=== PATIENT | male | born 1960 | race Caucasian/White ===

== ENCOUNTER 2017-04-22 12:53 | Emergency (ER) | payer MEDICAID, OTHER ==
[~2017-04-22] VITALS: Ht 172.7 cm; Wt 102.3 kg
[~2017-04-22 12:53] MED LIST: IBUP-1984 PO; NO HOME MEDS
[2017-04-22 12:56] VITALS: BP 163/88
== END 2017-04-22 13:29 ==
LOC: ER 12:53
DX: Z02.89 Encounter for other administrative examinations (principal); I10 Essential (primary) hypertension; E11.9 Type 2 diabetes mellitus without complications; F12.10 Cannabis abuse, uncomplicated; G89.29 Other chronic pain; Z59.0 Homelessness; Z90.49 Acquired absence of other specified parts of digestive tract; Z88.8 Allergy status to other drugs, medicaments and biological substances
CPT/HCPCS: 99283

== ENCOUNTER 2017-11-04 10:00 | Emergency (ER) | payer MEDICAID ==
[~2017-11-04] VITALS: Ht 28086.8 cm; Wt 90.0 kg
[2017-11-04] MEDS ORDERED: normal saline 1000ML IV soln IVB ONE (10:15)
[2017-11-04 10:35] LABS: BASOPHILS % (AUTO) 0.4 % (0-1); EOSINOPHILS # (AUTO) 0.2 X10'3 (0-0.9); HEMOGLOBIN 13.6 g/dl (14.0-17.9); LYMPHOCYTES # (AUTO) 3.1 X10'3 (1.1-4.8); LYMPHOCYTES % (AUTO) 28.3 % (21-51); MEAN CORPUSCULAR HEMOGLOBIN 29.8 PG (27.0-31.0); MEAN CORPUSCULAR HGB CONC 33.2 % (33.0-36.5); MEAN CORPUSCULAR VOLUME 89.6 FL (78-98); MEAN PLATELET VOLUME 9.6 FL (7.4-10.4); MONOCYTES # (AUTO) 0.9 X10'3 (0-0.9); MONOCYTES % (AUTO) 8.4 % (2-12); NEUTROPHILS # (AUTO) 6.7 X10'3 (1.8-7.7); NEUTROPHILS % (AUTO) 60.9 % (42-75); PLATELET COUNT 182 X10'3 (140-440); RED BLOOD COUNT 4.58 X10'6 (4.70-6.10); RED CELL DISTRIBUTION WIDTH 14.1 % (11.5-14.5)
[2017-11-04 10:44] LABS: PARTIAL THROMBOPLASTIN TIME 23 SECONDS (22-32); PROTHROMBIN TIME 10.6 SECONDS (9.0-12.0)
[2017-11-04 10:48] LABS: CLARITY,URINE CLEAR (Clear); COLOR,URINE YELLOW (Yellow); GLUCOSE, URINE 100 mg/dl (Neg); KETONES,URINE NEGATIVE (Neg); LEUKOCYTE ESTERASE ,URINE NEGATIVE (Neg); NITRITES, URINE NEGATIVE (Neg); OCCULT BLOOD,URINE NEGATIVE (Neg); PROTEIN,URINE 100 mg/dl (Neg); UROBILINOGEN,URINE >=8.0 E.U/dL (0.2-1.0)
[2017-11-04 10:50] LABS: ALANINE AMINOTRANSFERASE 27 U/L (12-78); ALBUMIN 3.9 G/DL (3.4-5.0); ALBUMIN/GLOBULIN RATIO 1.2 (1.1-1.5); ALKALINE PHOSPHATASE 91 IU/L (46-116); ANION GAP 6 (8-16); ASPARTATE AMINO TRANSFERASE 18 U/L (10-37); BILIRUBIN,TOTAL 0.8 MG/DL (0.1-1.0); BLOOD UREA NITROGEN 23 MG/DL (7-18); BUN/CREATININE RATIO 19.8 (5.4-32.0); CALCIUM 9.2 MG/DL (8.5-10.1); CHLORIDE 104 MMOL/L (99-107); CREATININE 1.16 MG/DL (0.60-1.10); ETHANOL < 0.010 GM/DL (0.0-0.010); GLUCOSE 105 MG/DL (70-104); SODIUM 143 MMOL/L (135-145); TOTAL CARBON DIOXIDE 32.6 MMOL/L (24-32); TOTAL PROTEIN 7.2 G/DL (6.4-8.2); eGFR 64 ML/MIN
[2017-11-04 10:51] LABS: POTASSIUM 2.9 MMOL/L (3.5-5.1)
[2017-11-04 11:01] LABS: URINE AMPHETAMINE SCREEN NEGATIVE (Neg); URINE BARBITUATE SCREEN NEGATIVE (Neg); URINE BENZODIAZEPINES SCREEN NEGATIVE (Neg); URINE CANNABINOID SCREEN POSITIVE (Neg); URINE COCAINE SCREEN NEGATIVE (Neg); URINE METHADONE SCREEN NEGATIVE (Neg); URINE OPIATE SCREEN NEGATIVE (Neg); URINE PHENCYCLIDINE SCREEN NEGATIVE (Neg)
[2017-11-04 11:05] LABS: UA COLLECTION TYPE STRAIGHT CATH
[2017-11-04 11:09] LABS: RBC,URINE 0-2 /HPF (0-2); WBC,URINE 0-4 /HPF (0-4)
[2017-11-04 11:10] LABS: BACTERIA,URINE NONE SEEN /HPF (Neg); MUCUS STRANDS MODERATE /LPF (Neg); SQUAMOUS EPITHELIAL CELL,UR MODERATE /LPF (FEW)
[2017-11-04 11:21] LABS: PHENYTOIN (DILANTIN) < 0.5 UG/ML (10.0-20.0); VALPROATE < 3.0 UG/ML (50-100)
[2017-11-04] MEDS ORDERED: potassium Cl 20 mEq SR tablet PO STA (11:40)
[2017-11-04] MEDS ORDERED: potassium Cl 20 mEq SR tablet PO ONE (15:00)
[2017-11-04] MEDS: haloperidol 1mg tablet PO SCH ×2 (15:22→23:00)
[2017-11-04] MEDS ORDERED: haloperidol 1mg tablet PO SCH (16:00)
[2017-11-04] MEDS ORDERED: haloperidol lactate 5mg/ml inj IM ONE (16:55)
[2017-11-04] MEDS ORDERED: LORazepam 2 mg/ml vial IM PRN (16:55)
[2017-11-04] MEDS: potassium Cl 20 mEq SR tablet PO SCH (20:36)
[2017-11-05] MEDS: haloperidol 1mg tablet PO SCH ×3 (01:28→16:44)
[2017-11-05] MEDS: potassium Cl 20 mEq SR tablet PO SCH ×2 (08:14→20:09)
[2017-11-06] MEDS: haloperidol 1mg tablet PO SCH ×4 (00:40→23:46)
[2017-11-06] MEDS: potassium Cl 20 mEq SR tablet PO SCH (08:00)
[2017-11-07] MEDS: haloperidol 1mg tablet PO SCH ×2 (09:10→16:41)
[2017-11-07] MEDS: LORazepam 1 MG tablet PO PRN ×2 (09:10→18:21)
[2017-11-07] MEDS: metoprolol succinate 25mg (24-HOUR) SR. Tablet PO SCH (20:54)
[2017-11-08] MEDS: LORazepam 1 MG tablet PO PRN (08:21)
[2017-11-08] MEDS: haloperidol 1mg tablet PO SCH ×4 (08:21→20:26)
[2017-11-08] MEDS: metoprolol succinate 25mg (24-HOUR) SR. Tablet PO SCH (08:21)
[2017-11-09] MEDS: LORazepam 1 MG tablet PO PRN (02:42)
[2017-11-09] MEDS: metoprolol succinate 25mg (24-HOUR) SR. Tablet PO SCH (08:41)
[2017-11-09] MEDS: haloperidol 1mg tablet PO SCH ×3 (08:42→20:41)
[2017-11-10] MEDS: metoprolol succinate 25mg (24-HOUR) SR. Tablet PO SCH (08:17)
[2017-11-10] MEDS: haloperidol 1mg tablet PO SCH ×3 (08:18→21:21)
[2017-11-11] MEDS: LORazepam 1 MG tablet PO PRN (01:52)
[2017-11-11] MEDS: haloperidol 1mg tablet PO SCH ×3 (07:34→20:34)
[2017-11-11] MEDS: metoprolol succinate 25mg (24-HOUR) SR. Tablet PO SCH (07:34)
[2017-11-12] MEDS: metoprolol succinate 25mg (24-HOUR) SR. Tablet PO SCH (08:14)
[2017-11-12] MEDS: haloperidol 1mg tablet PO SCH ×3 (08:14→20:25)
[2017-11-13] MEDS: LORazepam 1 MG tablet PO PRN (04:51)
[2017-11-13 05:30] VITALS: BP 160/90
[2017-11-13] MEDS: metoprolol succinate 25mg (24-HOUR) SR. Tablet PO SCH (08:40)
[2017-11-13] MEDS: haloperidol 1mg tablet PO SCH ×2 (08:40→13:07)
[2017-11-13] MEDS ORDERED: HALO2TAB PO (15:44)
[2017-11-13] MEDS ORDERED: METO-395 PO (16:39)
== END 2017-11-13 16:50 ==
LOC: ER 10:01
DX: F29 Unspecified psychosis not due to a substance or known physiological condition (principal); F31.9 Bipolar disorder, unspecified; I10 Essential (primary) hypertension; E11.9 Type 2 diabetes mellitus without complications; G89.29 Other chronic pain; F12.90 Cannabis use, unspecified, uncomplicated; Z90.49 Acquired absence of other specified parts of digestive tract; Z98.890 Other specified postprocedural states; Z59.0 Homelessness; Z60.2 Problems related to living alone; Z79.899 Other long term (current) drug therapy
CPT/HCPCS: 36415; 71045; 80053; 80164; 80185; 80305; 80320; 81001; 82140; 82948; 84132; 84443; 85025; 85610; 85730; 93005; 96372; 99285; A4353; J1630

== ENCOUNTER 2019-01-16 11:59 | Emergency (ER) | payer MEDICAID ==
[~2019-01-16] VITALS: Ht 172.7 cm; Wt 90.7 kg
[~2019-01-16 11:59] MED LIST changes: +HALO2TAB PO; -IBUP-1984 PO; +METO-395 PO
[2019-01-16 13:10] LABS: BASOPHILS % (AUTO) 0.3 % (0-1); EOSINOPHILS # (AUTO) 0.1 X10'3 (0-0.9); EOSINOPHILS % (AUTO) 1.2 % (0-6); HEMATOCRIT 42.8 % (42.0-52.0); HEMOGLOBIN 14.4 g/dl (14.0-17.9); LYMPHOCYTES # (AUTO) 2.2 X10'3 (1.1-4.8); LYMPHOCYTES % (AUTO) 18.4 % (21-51); MEAN CORPUSCULAR HEMOGLOBIN 29.8 PG (27.0-31.0); MEAN CORPUSCULAR HGB CONC 33.5 g/dL (33.0-36.5); MEAN CORPUSCULAR VOLUME 88.9 FL (78-98); MEAN PLATELET VOLUME 8.8 FL (7.4-10.4); MONOCYTES # (AUTO) 0.9 X10'3 (0-0.9); MONOCYTES % (AUTO) 7.6 % (2-12); NEUTROPHILS # (AUTO) 8.5 X10'3 (1.8-7.7); NEUTROPHILS % (AUTO) 72.5 % (42-75); PLATELET COUNT 230 X10'3 (140-440); RED BLOOD COUNT 4.82 X10'6 (4.70-6.10); RED CELL DISTRIBUTION WIDTH 13.8 % (11.5-14.5); WHITE BLOOD COUNT 11.8 X10'3 (4.5-11.0)
[2019-01-16 13:26] LABS: PARTIAL THROMBOPLASTIN TIME 24 SECONDS (22-32)
[2019-01-16 13:39] LABS: ALANINE AMINOTRANSFERASE 36 U/L (12-78); ALKALINE PHOSPHATASE 105 IU/L (46-116); ANION GAP 9 (8-16); ASPARTATE AMINO TRANSFERASE 24 U/L (10-37); BILIRUBIN,TOTAL 0.7 MG/DL (0.1-1.0); BLOOD UREA NITROGEN 33 MG/DL (7-18); BUN/CREATININE RATIO 25.8 (5.4-32.0); CALCIUM 9.4 MG/DL (8.5-10.1); CHLORIDE 106 MMOL/L (99-107); CREATININE 1.28 MG/DL (0.60-1.10); GLUCOSE 115 MG/DL (70-104); POTASSIUM 3.4 MMOL/L (3.5-5.1); SODIUM 145 MMOL/L (135-145); TOTAL CARBON DIOXIDE 30.4 MMOL/L (24-32); eGFR 57 ML/MIN
[2019-01-16 13:57] LABS: ETHANOL < 0.010 GM/DL (0.0-0.010)
[2019-01-16] MEDS ORDERED: normal saline 1000ML IV soln IVB ONE (14:25)
[2019-01-16] MEDS ORDERED: LORazepam 1 MG tablet PO ONE (15:25)
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
--- NOTE | 2019-01-16 18:35 | NUR ---
Pt eating dinner at edge of bed. Non communicative with this RN.
--- NOTE | 2019-01-16 19:20 | NUR ---
Nursing Note: Spoke with Dr. Campbell regarding pt's refusal to provide urine sample at this time. Dr. Campbell agreed to wait on straight cath order to allow pt opportunity to provide urine sample. Pt not sitting on edge of bed. Pt oriented to self, but not time, location, or reason for visit. No S&S of distress at this time, will continue to monitor.
--- NOTE | 2019-01-16 19:30 | NUR ---
Nursing Note: Unable to fully assess pt. He minimally responds to questions. Will continue to monitor.
--- NOTE | 2019-01-16 19:51 | NUR ---
Nursing Note: Pt up to restroom, attempted, but unable to provide urine sample. Pt now sitting quietly on edge of bed. No S&S of distress, will continue to monitor.
--- NOTE | 2019-01-16 20:30 | NUR ---
Nursing Note: Pt sitting up in bed, awake, RR even and unlabored, no S&S of distress, will continue to monitor.
--- NOTE | 2019-01-16 21:40 | NUR ---
Nursing Note: Pt laying in bed on his back with his eyes closed, appears asleep. RR even and unlabored, no S&S of distress, will continue to monitor.
--- NOTE | 2019-01-16 22:11 | NUR ---
covering primary RN for break. pt is currently in bed, supine, resting with eyes closed. RR WNL, rixe and fall of chest noted. no distress at this time. will continue to monitor.
--- NOTE | 2019-01-16 23:22 | NUR ---
Nursing Note: Pt supine in bed, eyes closed, appears asleep, RR even and unlabored, no S&S of distress, will continue to monitor.
--- NOTE | 2019-01-17 00:19 | NUR ---
Nursing Note: Pt up to the restroom. Requested urine sample from pt. Pt took cup into restroom, but returned with it empty. Will continue to attempt to get urine sample.
--- NOTE | 2019-01-17 01:11 | NUR ---
Pt was asked about providing urine sample. Pt just sat at bedside and did not respond or interact. Provided Pt with urinal. Pt tossed urinal to side. No verbal response from Pt.
--- NOTE | 2019-01-17 01:57 | NUR ---
Nursing Note: Pt sitting quietly on the edge of his bed, head bowed, with his hands clasped in front of him. He moves occasionally. RR even and unlabored, no S&S of distress.
--- NOTE | 2019-01-17 03:21 | NUR ---
Nursing Note: Pt laying supine in bed, sleeping, mouth open, RR even and unlabored, no S&S of distress, will continue to monitor.
--- NOTE | 2019-01-17 04:50 | NUR ---
Nursing Note: Pt supine in bed, eyes closed, RR even and unlabored, no S&S of distress, will continue to monitor.
[2019-01-17 05:39] VITALS: BP_DIAS 99
--- NOTE | 2019-01-17 06:15 | NUR ---
Patient up to the BR with a urine cup. ABIMAEL Bee ran into the BR with patient but patient unable to urinate. Per ABIMAEL Bee, patient had gone into the BR twice but came out without any urine sample. Patient is possibly retaining urine. RN to get a bladder scan. Continue to monitor.
--- NOTE | 2019-01-17 07:25 | NUR ---
Patient had used the BR and came out with a urine sample. Bladder scan completed immediately after by nursing informatics specialist with supervision of ABIMAEL Escalante. Patient has 477 mls of retained urine. RN advised Dr Contreras. Patient does not appear to be in any discomfort. Continue to monitor.
[2019-01-17 07:47] LABS: CLARITY,URINE CLEAR (Clear); COLOR,URINE STRAW (Yellow); GLUCOSE, URINE NEGATIVE (Neg); KETONES,URINE NEGATIVE (Neg); LEUKOCYTE ESTERASE ,URINE NEGATIVE (Neg); NITRITES, URINE NEGATIVE (Neg); OCCULT BLOOD,URINE NEGATIVE (Neg); PH,URINE 6.5 (4.8-8.0); PROTEIN,URINE NEGATIVE (Neg); UROBILINOGEN,URINE 0.2 E.U/dL (0.2-1.0)
[2019-01-17 08:00] VITALS: BP_SYST 171
[2019-01-17] MEDS ORDERED: lisinopril 10 MG tablet PO SCH (08:00)
[2019-01-17] MEDS ORDERED: HYDROchlorothiazide 25mg tablet PO SCH (08:00)
[2019-01-17 08:01] LABS: URINE AMPHETAMINE SCREEN NEGATIVE (Neg); URINE BARBITUATE SCREEN NEGATIVE (Neg); URINE BENZODIAZEPINES SCREEN NEGATIVE (Neg); URINE CANNABINOID SCREEN POSITIVE (Neg); URINE COCAINE SCREEN NEGATIVE (Neg); URINE METHADONE SCREEN NEGATIVE (Neg); URINE OPIATE SCREEN NEGATIVE (Neg); URINE PHENCYCLIDINE SCREEN NEGATIVE (Neg)
[2019-01-17 08:07] LABS: UA COLLECTION TYPE CLN CATCH MIDSTREAM
[2019-01-17] MEDS ORDERED: LIDOcaine 2% 10ml TOPICAL JELLY (Urojet) MM ONE (09:20)
--- NOTE | 2019-01-17 09:20 | NUR ---
Patient eating breakfast. No distress observed. Continue to monitor.
--- NOTE | 2019-01-17 10:20 | NUR ---
student recruiter with supervision of the RN sucessfully placed a 16 FR potter catheter. Clear yellow urine out. Continue to monitor.
--- NOTE | 2019-01-17 11:55 | NUR ---
Patient reclining in bed. No distress observed. Patient calm and denies suicidal ideation. Patient really doesn't know why he is here. Continue to monitor.
--- NOTE | 2019-01-17 13:10 | NUR ---
Patient eating lunch. No distress observed. Continue to monitor.
[2019-01-17] MEDS ORDERED: FLO0.4C PO (15:39)
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
== END 2019-01-17 16:30 | disposition home or self-care (01) ==
LOC: ER 11:59
DX: F29 Unspecified psychosis not due to a substance or known physiological condition (principal); R41.82 Altered mental status, unspecified; R79.1 Abnormal coagulation profile; I10 Essential (primary) hypertension; E11.9 Type 2 diabetes mellitus without complications; G89.29 Other chronic pain; F31.9 Bipolar disorder, unspecified; F12.90 Cannabis use, unspecified, uncomplicated; Z59.0 Homelessness; Z60.2 Problems related to living alone; Z86.69 Personal history of other diseases of the nervous system and sense organs; Z90.49 Acquired absence of other specified parts of digestive tract; Z98.890 Other specified postprocedural states; Z88.8 Allergy status to other drugs, medicaments and biological substances; Z79.899 Other long term (current) drug therapy
CPT/HCPCS: 36415; 70450; 71045; 72125; 80053; 80305; 80320; 81003; 82140; 82948; 84484; 85025; 85610; 85730; 93005; 96360; 99284; J7030